=== PATIENT | female | born 1950 | race Caucasian/White ===

== ENCOUNTER 2017-09-19 07:02 | Inpatient (IN) ==
[2017-09-13 15:10] LABS: Appearance,Urine CLEAR; Bilirubin,Urine NEG (NEG); Color,Urine STRAW; Glucose,Urine (UA) NEGATIVE (NEG); Leukocyte Esterase,Urine NEG /uL (NEG); Protein,Urine NEG (NEG); Specific Gravity,Urine 1.011 (1.000-1.035); Urine Blood NEG mg/dL (<0.03); Urobilinogen,Urine NEG (NEG)
[2017-09-13 16:09] LABS: Basophils # (Auto) 0 K/mcL (0.0-0.3); Basophils % (Auto) 0.5 % (0.0-2.0); Eosinophils # (Auto) 0.1 K/mcL (0.0-0.7); Eosinophils % (Auto) 1.7 % (0.0-7.0); Granulocytes % (Auto) 60.4 % (38.0-78.0); Lymphocytes # (Auto) 1.8 K/mcL (1.5-4.8); Lymphocytes % (Auto) 28.5 % (15.5-49.0); Mean Cell Volume 89.6 fL (80.0-100.0); Mean Corpuscular HGB Conc 33.1 g/dL (31.0-36.0); Mean Corpuscular Hemoglobin 29.6 pg (26.0-34.0); Monocytes # (Auto) 0.6 K/mcL (0.1-0.9); Monocytes % (Auto) 8.9 % (1.0-12.0); Platelet Count 305 K/mcL (140-440); RBC 4.31 M/mcL (4.00-5.20); Red Cell Distribution Width 14.4 % (11.5-14.5)
[2017-09-13 16:13] LABS: ALT/SGPT 22 U/l (0-40); Albumin/Globulin Ratio 1.4 (1.0-2.3); Alkaline Phosphatase 90 U/L (39-117); Blood Urea Nitrogen 12 mg/dl (8-23)
[~2017-09-19 07:02] MED LIST: ceFAZolin 1 GM VIAL IV SCH
[2017-09-19] MEDS ORDERED: MIDAZOLAM 2 MG/2 ML VIAL IV ONE (11:30)
[2017-09-19] MEDS ORDERED: fentaNYL 100 MCG/2 ML VIAL IV ONE (11:30)
[2017-09-19] MEDS ORDERED: KETAMINE 100 MG/ML ML IV ONE (11:30)
[2017-09-19] MEDS ORDERED: ONDANSETRON 4 MG/2 ML VIAL IV ONE (11:30)
[2017-09-19] MEDS ORDERED: PROPOFOL 200 MG/20 ML VIAL IV ONE (11:30)
[2017-09-19] MEDS ORDERED: GLYCOPYRROLATE 0.2 MG/ML VIAL IV ONE (11:30)
[2017-09-19] MEDS ORDERED: LIDOCAINE HCL/PF 100 MG/5 ML SYRINGE IV ONE (11:30)
[2017-09-19] MEDS ORDERED: HYDROmorphone 2 MG/ML VIAL IV ONE (11:30)
[2017-09-19] MEDS ORDERED: DEXAMETHASONE 10 MG/ML VIAL IV ONE (11:30)
[2017-09-19] MEDS ORDERED: GENTAMICIN SULFATE 800 MG/20 ML VIAL IR ONE (11:58)
[2017-09-19] MEDS ORDERED: FLUMAZENIL 0.1 MG/ML ML IV PRN (12:41)
[2017-09-19] MEDS ORDERED: ACETAMINOPHEN 1,000 MG/100 ML BOTTLE IV ONE (12:41)
[2017-09-19] MEDS ORDERED: ONDANSETRON 4 MG/2 ML VIAL IV PRN ×2 (12:41→13:41)
[2017-09-19] MEDS ORDERED: METHOCARBAMOL 1,000 MG/10 ML VIAL IV PRN (12:41)
[2017-09-19] MEDS ORDERED: fentaNYL 100 MCG/2 ML VIAL IV PRN (12:41)
[2017-09-19] MEDS ORDERED: MEPERIDINE 50 MG/ML INJECTION IM PRN (12:41)
[2017-09-19] MEDS ORDERED: IPRATROPIUM/ALBUTEROL 3 ML AMPUL.NEB NEB PRN (12:41)
[2017-09-19] MEDS ORDERED: MEPERIDINE 25 MG/ML SYRINGE IV PRN (12:41)
[2017-09-19] MEDS ORDERED: BENZOCAINE/MENTHOL 1 LOZENGE PO PRN ×2 (12:41→13:41)
[2017-09-19] MEDS ORDERED: PROMETHAZINE 25 MG/ML VIAL IM PRN (12:41)
[2017-09-19] MEDS ORDERED: NALOXONE HCL 0.4 MG/ML VIAL IV PRN (12:41)
[2017-09-19] MEDS ORDERED: LACTATED RINGERS 250 ML IV PRN (12:41)
[2017-09-19] MEDS ORDERED: LACTATED RINGERS 1,000 ML IV SCH (12:45)
[2017-09-19] MEDS ORDERED: MAGNESIUM HYDROXIDE 30 ML ORAL.SUSP PO PRN (13:41)
[2017-09-19] MEDS ORDERED: POLYETHYLENE GLYCOL 3350 17 GM PACKET PO PRN (13:41)
[2017-09-19] MEDS ORDERED: HYDROmorphone 2 MG/ML VIAL IV PRN (13:41)
[2017-09-19] MEDS ORDERED: ONDANSETRON ODT 4 MG TABLET SL PRN (13:41)
[2017-09-19] MEDS ORDERED: TRANEXAMIC ACID 1,000 MG/10 ML VIAL IV ONE (13:41)
[2017-09-19] MEDS ORDERED: FLEETS ADULT ENEMA PR PRN (13:41)
[2017-09-19] MEDS ORDERED: BISACODYL 10 MG SUPP.RECT PR PRN (13:41)
--- NOTE | 2017-09-19 15:13 | XRay Report ---
CLINICAL INFORMATION: Right hip replacement TECHNIQUE: AP pelvis. AP and lateral right hip COMPARISON: None. FINDINGS: Status post right total hip arthroplasty. Acetabular and femoral head components are in anatomic positions. There is postsurgical soft tissue gas. There are skin niecy overlying the right hip. Patient has undergone prior left total hip arthroplasty. Pelvis and sacrum are negative. No fracture. No lytic lesion. IMPRESSION: Status post right total hip arthroplasty. Interpreted and Authenticated by: Mark Blakely 09/19/17
--- NOTE | 2017-09-19 15:14 | Brief Operative Note ---
Date of procedure: 09/19/17 Pre-op diagnosis: hip arthrosis Post-op diagnosis: same Procedure: R total hip Grafts/Implants: Yes (depuy) Anesthesia: GETA Findings: severe arthrosis Complications: none Surgeon: David Anne Mgmt Analyst: Clarisa Lazo Estimated blood loss (cc): 250 Specimens Removed/Pathology: none sent Condition: stable Disposition: PACU
[2017-09-19] MEDS: METHOCARBAMOL 750 MG TABLET PO PRN (15:48)
[2017-09-19] MEDS: traMADol 50 MG TABLET PO PRN ×2 (15:48→19:25)
--- NOTE | 2017-09-19 16:20 | XRay Report ---
CLINICAL INFORMATION: Intraoperative fluoroscopy. TECHNIQUE: 0.5 minutes fluoroscopy utilized. Right hip replacement surgery performed an intraoperative spot films obtained IMPRESSION: Intraoperative fluoroscopy for right hip replacement surgery Interpreted and Authenticated by: Mark Blakely 09/19/17
[2017-09-19] MEDS: HYDROmorphone 2 MG TABLET PO PRN ×2 (16:55→21:37)
[2017-09-19] MEDS: 0.9 % SODIUM CHLORIDE 1,000 ML IV SCH (17:56)
[2017-09-19] MEDS: 0.9 % SODIUM CHLORIDE 10 ML SYRINGE IV SCH ×2 (17:57→22:58)
[2017-09-19] MEDS: FERROUS SULFATE 325 MG TABLET PO SCH (18:00)
[2017-09-19] MEDS: DOCUSATE SODIUM 100 MG CAPSULE PO SCH (19:25)
[2017-09-19] MEDS: SENNOSIDES 1 TABLET PO SCH (19:25)
[2017-09-19] MEDS: ASPIRIN 325 MG ENTERIC COATED TABLET PO SCH (19:25)
[2017-09-19] MEDS: lamoTRIgine 25 MG TABLET PO SCH (19:27)
[2017-09-19] MEDS: ceFAZolin 1 GM VIAL IV SCH (19:31)
[2017-09-20] MEDS: METHOCARBAMOL 750 MG TABLET PO PRN (00:44)
[2017-09-20] MEDS: HYDROmorphone 2 MG TABLET PO PRN ×6 (01:31→23:27)
[2017-09-20] MEDS: 0.9 % SODIUM CHLORIDE 1,000 ML IV SCH ×4 (03:49→23:18)
[2017-09-20] MEDS: ceFAZolin 1 GM VIAL IV SCH (03:49)
[2017-09-20] MEDS: LEVOTHYROXINE 100 MCG TABLET PO SCH (07:13)
[2017-09-20] MEDS: FERROUS SULFATE 325 MG TABLET PO SCH ×2 (07:13→17:38)
--- NOTE | 2017-09-20 07:16 | Operative Note ---
DATE OF OPERATION: 09/19/2017 PREOPERATIVE DIAGNOSIS: Advanced arthrosis right hip. POSTOPERATIVE DIAGNOSIS: Advanced arthrosis right hip. OPERATION PROPOSED: Right total hip arthroplasty. OPERATION PERFORMED: Right hip hemiarthroplasty. OPERATING SURGEON: David Anne MD SHOWROOM MANAGER: Clarisa Lazo PA-C INDICATIONS: This is a lady who has had severe right hip pain. She has had a previous left total hip arthroplasty and has done well. She now requests proceeding with total hip arthroplasty on the right. OPERATION IN DETAIL: Informed consent was obtained. She was taken to the operating where she was provided appropriate anesthetic and prophylactic antibiotics. She was carefully positioned. Her hip was prepped sterilely. A standard anterior approach to the hip was performed. I dissected into the fascia of the tensor musculature. I dissected then over the anterior hip capsule and placed retractors. I cut and T'd the hip capsule. I dislocated the neck and freed capsule from along the neck. I then made a neck resection and removed the femoral head. I sequentially reamed the acetabulum and impacted a size 52 [place] cup from [employer]. A standard non-hooded liner was applied. I turned my attention to the proximal femur where I broached and trialled a variety of components. I selected a size 4 active stem. I impacted this into place. A +5 size 36 head was reduced into position. I irrigated extensively, closed the hip capsule and then repaired the fascia over the tensor musculature. The procedure was closed with 2-0 inverted deep dermal and Dermabond on the skin. The procedure was tolerated well. No complications. Estimated blood loss was 250 mL. GDD:andrea Job ID: [id number] Doc ID: [id number] David Anne MD
[2017-09-20] MEDS: 0.9 % SODIUM CHLORIDE 10 ML SYRINGE IV SCH ×4 (07:36→23:12)
--- NOTE | 2017-09-20 07:51 | Orthopedic Progress Note ---
Subjective Patient information: Note initiated : 09/20/17 at 7:49 am Service Date, if different from initiated Date: [] Patient: Petra Fritz 67 y/o F admitted on 09/19/17 for Total Hip Arthroplasty Anterior Right. Chief Complaint: [] was light headed when up Principal diagnosis: hip arthrosis Objective Vital signs: Vital Signs Temp Pulse Resp BP BP Pulse Ox 09/20/17 07:02 98.0 F 84 16 124/71 95 09/20/17 04:00 97.6 F 73 16 136/79 95 09/19/17 23:55 97.3 F 61 16 114/68 94 09/19/17 19:58 96.8 F L 62 16 145/85 93 09/19/17 19:51 16 92 09/19/17 17:57 146/90 91 09/19/17 16:59 143/69 93 09/19/17 15:57 142/90 94 09/19/17 15:42 143/80 91 09/19/17 15:27 143/78 91 09/19/17 15:12 146/83 93 09/19/17 14:57 141/92 93 09/19/17 14:45 97.3 F 73 16 137/85 93 09/19/17 14:40 73 11 L 136/71 93 09/19/17 14:35 97.6 F 88 14 133/82 93 09/19/17 14:30 85 16 134/83 93 09/19/17 14:25 88 16 105/52 90 09/19/17 14:20 97.2 F 86 17 130/78 90 09/19/17 14:15 88 18 152/66 90 09/19/17 14:10 88 18 116/72 99 09/19/17 14:05 96.3 F L 77 14 105/57 95 09/19/17 14:00 68 14 106/58 98 09/19/17 13:55 70 15 106/58 97 09/19/17 13:50 97.5 F 77 19 107/61 95 Intake and Output 09/19/17 09/20/17 09/20/17 21:59 05:59 13:59 Intake Total 1900 / 1900 1238 / 1238 Output Total 1583 / 1583 525 / 525 Balance 317 / 317 713 / 713 Intake: IV 988 / 988 Sodium Chloride 0.9% 1,000 ml @ 988 / 988 100 mls/hr IV .Q10H BREE Rx#: [id number] Oral 250 / 250 IV - Manual Only 190 1900 Output: Drainage 158 / 158 50 / 50 Right MATTHEW Drain 158 / 158 50 / 50 Urine Catheter Amount 700 / 700 Void Amount 175 / 175 475 / 475 Emesis 300 / 300 Estimated Blood Loss 250 / 250 Other: Weight 199 lb 6.4 oz Intake & Output: Intake & Output 09/19/17 09/20/17 09/20/17 21:59 05:59 13:59 Intake Total 1900 / 1900 1238 / 1238 Output Total 1583 / 1583 525 / 525 Balance 317 / 317 713 / 713 Weight 199 lb 6.4 oz Intake: IV 988 / 988 Sodium Chloride 0.9% 1,000 ml @ 988 / 988 100 mls/hr IV .Q10H BREE Rx#: [id number] Oral 250 / 250 IV - Manual Only 1900 Output: Drainage 158 / 158 50 / 50 Right MATTHEW Drain 158 / 158 50 / 50 Urine Catheter Amount 700 / 700 Void Amount 175 / 175 475 / 475 Emesis 300 / 300 Estimated Blood Loss 250 / 250 Dressing: Yes clean, Yes dry, Yes intact Weight bearing status: full Neurological exam IM: Yes oriented X3, Yes neurovascular intact - Labs CBC & BMP: 09/20/17 04:26 09/13/17 13:54 Labs: Orthopedic Labs 09/20/17 09/13/17 04:26 13:54 PT 13.6 13.2 INR 1.0 1.0 09/20/17 09/13/17 04:26 13:54 Hgb 11.4 L 12.8 Hct 34.1 L 38.6 Assessment and Plan (1) Osteoarthritis status post tay mobilize with pt possible dc Status: Acute Qualifiers: Osteoarthritis location: multiple joints Osteoarthritis type: unspecified Qualified Code(s): M15.9 - Polyosteoarthritis, unspecified
[2017-09-20] MEDS: LOSARTAN 50 MG TABLET PO SCH (09:30)
[2017-09-20] MEDS: ASPIRIN 325 MG ENTERIC COATED TABLET PO SCH ×2 (09:30→20:43)
[2017-09-20] MEDS: DOCUSATE SODIUM 100 MG CAPSULE PO SCH ×2 (09:30→20:43)
[2017-09-20] MEDS: lamoTRIgine 25 MG TABLET PO SCH ×2 (10:49→20:44)
[2017-09-20] MEDS: SENNOSIDES 1 TABLET PO SCH (20:43)
[2017-09-21] MEDS: 0.9 % SODIUM CHLORIDE 10 ML SYRINGE IV SCH (05:19)
[2017-09-21] MEDS: 0.9 % SODIUM CHLORIDE 1,000 ML IV SCH (06:54)
[2017-09-21] MEDS: FERROUS SULFATE 325 MG TABLET PO SCH (08:44)
[2017-09-21] MEDS: LOSARTAN 50 MG TABLET PO SCH (08:45)
[2017-09-21] MEDS: traMADol 50 MG TABLET PO PRN (08:45)
[2017-09-21] MEDS: DOCUSATE SODIUM 100 MG CAPSULE PO SCH (08:46)
[2017-09-21] MEDS: LEVOTHYROXINE 100 MCG TABLET PO SCH (08:46)
[2017-09-21] MEDS: ASPIRIN 325 MG ENTERIC COATED TABLET PO SCH (08:46)
[2017-09-21] MEDS: lamoTRIgine 25 MG TABLET PO SCH (09:28)
--- NOTE | 2017-09-21 10:50 | Orthopedic Progress Note ---
Subjective Patient information: Note initiated : 09/21/17 at 10:48 am Service Date, if different from initiated Date: [] Patient: Petra Fritz 67 y/o F admitted on 09/19/17 for Total Hip Arthroplasty Anterior Right. Chief Complaint: [The patient has been educated regarding dressing care, Physical Therapy recommendations, home exercises, restrictions, and follow up appointments. The patient has had all necessary DME prescribed. The patient has remained relatively stable during their hospital course. ] Principal diagnosis: hip arthrosis Objective Vital signs: Vital Signs Temp Pulse Resp BP Pulse Ox 09/21/17 07:18 98.4 F 70 20 136/75 95 09/21/17 04:00 99.3 F H 92 H 20 132/79 93 09/20/17 23:03 99.8 F H 82 20 121/72 94 09/20/17 19:51 99.4 F H 87 22 134/72 95 09/20/17 16:57 70 09/20/17 16:00 98.4 F 70 12 125/67 96 09/20/17 13:00 92 H 09/20/17 12:00 98.6 F 92 H 16 137/80 93 Intake and Output 09/20/17 09/21/17 09/21/17 21:59 05:59 13:59 Intake Total 691 / 691 500 / 500 Output Total 1200 / 1200 800 / 800 Balance -509 / -509 -300 / -300 Intake: IV 571 / 571 Oral 120 / 120 500 / 500 Output: Drainage 100 / 100 Right MATTHEW Drain 100 / 100 Void Amount 1100 / 1100 800 / 800 Other: Meal Nourishment/Supplement Percent of Meal Consumed 100% # Voids 1 Weight 203 lb Intake & Output: Intake & Output 09/20/17 09/21/17 09/21/17 21:59 05:59 13:59 Intake Total 691 / 691 500 / 500 Output Total 1200 / 1200 800 / 800 Balance -509 / -509 -300 / -300 Weight 203 lb Intake: IV 571 / 571 Oral 120 / 120 500 / 500 Output: Drainage 100 / 100 Right MATTHEW Drain 100 / 100 Void Amount 1100 / 1100 800 / 800 Other: Meal Nourishment/Supplement Percent of Meal Consumed 100% # Voids 1 Incision: Yes healing Incision clean and dry: Yes Dressing: Yes clean Weight bearing status: full Neurological exam IM: Yes motor sensory intact Extremities exam IM: Yes neurovascular intact - Labs CBC & BMP: 09/21/17 04:35 09/13/17 13:54 Labs: Orthopedic Labs 09/21/17 09/20/17 09/13/17 04:35 04:26 13:54 PT 13.8 13.6 13.2 INR 1.1 1.0 1.0 09/21/17 09/20/17 09/13/17 04:35 04:26 13:54 Hgb 11.1 L 11.4 L 12.8 Hct 33.6 L 34.1 L 38.6 Assessment and Plan (1) Hx of total hip arthroplasty The patient has been educated regarding dressing care, Physical Therapy recommendations, home exercises, restrictions, and follow up appointments. The patient has had all necessary DME prescribed. The patient has remained relatively stable during their hospital course. Status: Acute
== END 2017-09-21 11:30 | disposition home or self-care (01) | DRG 470 ==
LOC: MEDSUR 07:02
PROVIDERS: ADMIT Orthopaedic Surgery Orthopaedic Surgery of the Spine; ATTEND Orthopaedic Surgery Orthopaedic Surgery of the Spine